=== PATIENT | female | born 1950 | race Caucasian/White ===

== ENCOUNTER 2022-02-13 00:57 | Day surgery (SDC) | payer OTHER, SELFPAY ==
[2022-01-24 14:27] VITALS: BMI 29.5
[2022-02-13 08:25] VITALS: BP 147/86; PULSE 105; RESP 18; TEMP 36.6; O2SAT 100; BMI 29.5
--- NOTE | 2022-02-13 08:46 | P.HP_ITS ---
History of Present Illness History of Present Illness Consent: Risks, benefits, and alternatives have been discussed and questions answered. Patient agrees to proceed with procedure. Chief complaint: neoplasm screening Narrative: Maru Herrera is a 71 year old female Referred for colon cancer screening. Review of Systems Review of Systems: All systems reviewed & are unremarkable except as noted in HPI and below PMFSH Past Medical History Medical History Allergies Anxiety Arthritis Cancer Osteoporosis Surgical History Surgical History History of hysterectomy 1995, Dr. Chen History of lumpectomy 2008, Dr. Ferguson History of tooth extraction 2018, Dr. Lukasz Acosta History of total left hip arthroplasty 1997, Dr. Emerson Key Family History Family History Unknown Family history of cancer fallopian tube Other Alcoholism Breast cancer Cerebrovascular accident Family history of arthritis Family history of heart attack Family history of heart disease Family history of high cholesterol Family history of lung disease Family history of prostate cancer Family history of stroke Hypertension Social History Social History Smoking packs per day: 1 Smoking cigarettes per day: 20.0 Years smoked: 12 Smoking pack-years: 12.00 Smoking status: Former smoker Tobacco type: cigarettes Alcohol intake: current Drinks per week: 6 Substance use: unknown Substance use type: does not use Living arrangements: alone 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[employer] Gender identity (if verbalized by the patient): Female Spiritual care concerns: No Meds Home Medications and Allergies Home Medications Medication Instructions Recorded Confirmed Type venlafaxine 100 mg tablet 100 mg PO DAILY 02/07/22 02/13/22 History Allergies Allergy/AdvReac Type Severity Reaction Status Date / Time codeine Allergy Intermediate Hallucinati Verified 02/13/22 08:34 ng Vital Signs Vital Signs - 24 hr 02/13/22 08:25 Temperature 36.6 C Pulse Rate 105 H Respiratory Rate 18 Blood Pressure 147/86 H Pulse Oximetry 100 Exam Resp: Auscultation: clear to auscultation bilaterally Cardio: Rate: regular rate Rhythm: regular rhythm GI: GI Palp: Yes Soft to palpation and No Tenderness to palpation present (GI) Assessment and Plan Assessment and plan (1) Colon cancer screening: Code(s): Z12.11 - Encounter for screening for malignant neoplasm of colon Status: Acute Assessment and Plan: Colonoscopy with possible biopsy or polypectomy or cautery or injection of substances.
[2022-02-13] MEDS: LACTATED RINGERS 1,000 ML 150 ML IV CONT (08:52)
--- NOTE | 2022-02-13 09:20 | P.PNAN_ITS ---
Anes - Initial Pre Proc Eval Procedure: Operation Date: 02/13/22 09:30 Proposed Procedures p Screening Colonoscopy - Mario Pereira MD Date/Time: 02/13/22 09:20 Surgeon: Mario Pereira MD Pre Op Diagnosis: neoplasm screening Patient Data Age: 71 Gender: F Height: 1.45 m Weight: 61.8 kg Last Vital Signs Temp 97.8 F 02/13/22 08:25 Pulse 105 H 02/13/22 08:25 Resp 18 02/13/22 08:25 BP 147/86 H 02/13/22 08:25 Pulse Ox 100 02/13/22 08:25 Allergies Allergy/AdvReac Type Severity Reaction Status Date / Time codeine Allergy Intermediate Hallucinati Verified 02/13/22 08:34 ng Home Medications Medication Instructions Recorded Confirmed Type venlafaxine 100 mg tablet 100 mg PO DAILY 02/07/22 02/13/22 History Patient hx anesthesia problems: none Family hx anesthesia problems: none Results Review: All pre-operative results and documents have been reviewed as part of the pre- operative evaluation. [facility] Past Medical History Medical History Allergies Anxiety Arthritis Cancer Osteoporosis Surgical History Surgical History History of hysterectomy 1995, Dr. Chen History of lumpectomy 2008, Dr. Ferguson History of tooth extraction 2018, Dr. Lukasz Acosta History of total left hip arthroplasty 1997, Dr. Emerson Key Family History Family History Unknown Family history of cancer fallopian tube Other Alcoholism Breast cancer Cerebrovascular accident Family history of arthritis Family history of heart attack Family history of heart disease Family history of high cholesterol Family history of lung disease Family history of prostate cancer Family history of stroke Hypertension Social History Social History Smoking packs per day: 1 Smoking cigarettes per day: 20.0 Years smoked: 12 Smoking pack-years: 12.00 Smoking status: Former smoker Tobacco type: cigarettes Alcohol intake: current Drinks per week: 6 Substance use: unknown Substance use type: does not use Living arrangements: alone 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 Informed Consent: The patient's anesthetic plan and its attendant risks and benefits were discusse d with the patient/family/POA. Questions were solicited and answers provided to the satisfaction of the patient/family/POA.
[2022-02-13 09:44] VITALS: BP 133/79; PULSE 82; RESP 20; O2SAT 100
[2022-02-13 09:54] VITALS: BP 135/80; PULSE 84; RESP 19; O2SAT 100
[2022-02-13 10:04] VITALS: BP 137/87; PULSE 81; RESP 22; O2SAT 100
== END 2022-02-13 10:12 | disposition home or self-care (01) ==
PROVIDERS: PCP Internal Medicine; Visit Provider Internal Medicine Gastroenterology
PROC: 0DJD8ZZ Inspection of Lower Intestinal Tract, Via Natural or Artificial Opening Endoscopic (ICD-10-PCS; CPT 45378; principal; 2022-02-13 09:30)
DX: Z12.11 Encounter for screening for malignant neoplasm of colon (principal); F41.9 Anxiety disorder, unspecified; Z87.891 Personal history of nicotine dependence; E66.9 Obesity, unspecified; Z68.29 Body mass index [BMI] 29.0-29.9, adult
CPT/HCPCS: G0121; J2704; J7120

== ENCOUNTER → 2022-02-25 13:33 | Outpatient (CLI) | payer OTHER, SELFPAY ==
--- NOTE | ~2022-02-25 | CT_ITS ---
EXAMINATION: CT hip LT wo con DATE: 02/25/2022 13:54 INDICATION: Left hip pain. TECHNIQUE: Computed tomography (CT) of the left hip was performed without intravenous contrast. Autom ated exposure control and iterative reconstruction technique were employed. The dose-length product w as 384.75 mGy-cm. COMPARISON: Left hip radiographs 02/03/2022 FINDINGS: There is a total left hip arthroplasty with asymmetric liner wear. No fracture. There is beba cency adjacent to the acetabular cup superolaterally. There is lucency adjacent to the proximal aspec t of the femoral component. There are 2 screws in the posterior acetabulum. No acute fracture. IMPRESSION: 1. Total left hip arthroplasty with asymmetric liner wear and osteolysis adjacent to the acetabular a nd femoral components, which may be particle disease or infection. Reviewed, dictated and finalized at location B. IMPRESSION: 1. Total left hip arthroplasty with asymmetric liner wear and osteolysis adjace nt to the acetabular and femoral components, which may be particle disease or i nfection.
== END ==
PROVIDERS: PCP Family Medicine; Visit Provider Orthopaedic Surgery
DX: M25.552 Pain in left hip (principal); G89.29 Other chronic pain; Z96.642 Presence of left artificial hip joint
CPT/HCPCS: 73700

== ENCOUNTER → 2022-06-10 07:52 | Outpatient (CLI) | payer OTHER, SELFPAY ==
--- NOTE | ~2022-06-10 | DEXA_ITS ---
Bone Density Report Name: VIVIANE DUENAS Age: 71 Sex: Female Ethnicity: White Date of : 1950 Indication: postmenopausal; screening for osteoporosis; height loss; hysterectomy; Referring Provider: NEELIMA DALLAS Study: Bone densitometry was performed. Exam Date: June 10, 2022 Accession number: [id number] Bone Density: Region BMD T-score Z-score Classification AP Spine (L1-L4) 0.845 -1.8 0.4 Osteopenia Femoral Neck (Right) 0.646 -1.8 0.1 Osteopenia Total Hip (Right) 0.850 -0.8 0.8 Normal World Health Organization criteria for BMD impression classify patients as: Normal (T-score at or above -1.0), Osteopenia (T-score between -1.0 and -2.5), or Osteoporosis (T-score at or below -2.5). 10-year Fracture Risk(1): Major Osteoporotic Fracture 11% Hip Fracture 2.0% Reported Risk Factors: [place] (), Neck BMD=0.646, BMI=30.9 (1) FRAX(R) Version 3.08. Fracture probability calculated for an untreated patient. Fracture probability may be lower if the patient has received treatment. Clinical Information Provided by Patient: Has the following medical conditions: Hysterectomy, HX OF RIGHT BREAST CANCER LUMPECTOMY WITH RADIATION AND CHEMO IN 2005, HX OF TAKING ANASTROZOLE Patient maximum height was 57.0 Menopause Age: 45 No regular weight bearing exercise Drinks caffeinated beverages Onset of menses at age 12 Number of children 0 Impression: The patient has low bone mass, based on the Total Spine T-score. The patient has an estimated ten-year risk of hip fracture of 2% and an estimated ten-year risk of major fracture of 11%, based on the WHO FRAX algorithm. Discussion: BONE DENSITY IS LOW AT ONE OR MORE SKELETAL SITES. This patient's lowest T-score is low at one or more skeletal sites. It meets the World Health Organization's (WHO) criteria for ?low bone mass? (T-score between -1.0 and -2.5). The patient's 10-year risk of fracture as calculated by FRAX is less than the threshold where pharmacological therapy is recommended by the National Osteoporosis Foundation (NOF). However, all treatment decisions require clinical judgment and consideration of individual patient factors, including patient preferences, comorbidities, previous drug use, risk factors not captured in the FRAX model (e.g., frailty, falls, vitamin D deficiency, increased bone turnover, interval significant decline in bone density) and possible under or overestimation of fracture risk by FRAX. The patient should follow a healthful lifestyle (good nutrition with adequate calcium and vitamin D, and appropriate weight-bearing exercise). Follow-Up: Consider repeating this study in 2 to 3 years to reassess this patient's status, or sooner if there is some new clinical indication. Reported by: MEÑO on 06/10/2022 9:19:00 AM.
== END ==
PROVIDERS: PCP Family Medicine; Visit Provider Internal Medicine
DX: M81.0 Age-related osteoporosis without current pathological fracture (principal); M85.88 Other specified disorders of bone density and structure, other site; M85.851 Other specified disorders of bone density and structure, right thigh
CPT/HCPCS: 77080

== ENCOUNTER 2022-09-09 11:52 | Outpatient (CLI) | payer OTHER, SELFPAY ==
--- NOTE | ~2022-09-09 | MM_ITS ---
EXAMINATION: MM diagnostic dimitri BI w geoff HISTORY: Screening. History of breast cancer. TECHNIQUE: ML, MLO and CC 3-D tomosynthesis images of both breasts were performed and synthetic 2-D i mages were generated. CAD analysis was submitted and interpreted. COMPARISON: None BREAST PARENCHYMAL COMPOSITION: There are scattered areas of fibroglandular density. FINDINGS: There is postoperative change including surgical clips, architectural distortion of very de nse calcification in the posterior upper outer right breast. Otherwise no suspicious mass, architectural distortion malignant calcification or skin retraction is noted. IMPRESSION: 1. Status post right partial mastectomy for breast cancer; no mammographic evidence of malignancy 2. Routine annual mammographic screening is recommended BI-RADS Category 2: Benign finding(s). Reviewed, dictated and finalized at location A. [employer] IMPRESSION: 1. Status post right partial mastectomy for breast cancer; no mammographic evid ence of malignancy 2. Routine annual mammographic screening is recommended BI-RADS Category 2: Benign finding(s).
== END 2022-09-09 11:53 | disposition home or self-care (01) ==
PROVIDERS: PCP Family Medicine; Visit Provider Family Medicine
DX: Z85.3 Personal history of malignant neoplasm of breast (principal)
CPT/HCPCS: 77062; 77066; G0279

== ENCOUNTER 2022-10-17 09:38 | Outpatient (CLI) | payer OTHER, SELFPAY ==
[2022-10-17 19:54] LABS: LDL Cholesterol Direct 109 mg/dL
[2022-10-17 20:11] LABS: Alanine Aminotransferase 26 U/L (6-35); Albumin Level 4.4 g/dL (3.5-5.1); Alkaline Phosphatase 69 U/L (38-126); Anion Gap 5 mmol/L (8-16); Aspartate Amino Transferase 38 U/L (14-36); Bilirubin,Total 0.4 mg/dL (0.2-1.3); Blood Urea Nitrogen 26 mg/dL (7-17); Carbon Dioxide 29 mmol/L (22-30); Chloride 101 mmol/L (98-107); Cholesterol 265 mg/dL (0-200); Estimated Glomerular Filt Rate > 60; Glucose 107 mg/dL (65-110); Potassium 4.1 mmol/L (3.4-5.0); Sodium 135 mmol/L (137-145); Triglycerides 80 mg/dL (<150)
[2022-10-17 20:20] LABS: HDL Direct 124 mg/dL
== END 2022-10-17 09:39 | disposition home or self-care (01) ==
LOC: ANHGOSHLAB 09:39
PROVIDERS: PCP Family Medicine; Visit Provider Family Medicine
DX: E78.00 Pure hypercholesterolemia, unspecified (principal); Z13.228 Encounter for screening for other metabolic disorders
CPT/HCPCS: 36415; 80053; 80061

== ENCOUNTER 2023-10-19 10:41 | Outpatient (CLI) | payer OTHER, SELFPAY ==
[2023-10-19 13:45] LABS: Basophils Absolute Auto 0.1 K/mm3 (0.0-0.1); Eosinophils Absolute Auto 0.3 K/mm3 (0-0.3); Eosinophils Percent Auto 4.7 % (0-4.4); Hematocrit 37.4 % (37.0-47.0); Hemoglobin 11.8 g/dL (12.0-15.0); Immature Granulocyte Absolute 0.01 K/mm3 (0.00-0.031); Immature Granulocyte Percent A 0.2 % (0-0.5); Lymphocytes Absolute Auto 1.95 K/mm3 (0.9-3.2); Lymphocytes Percent Auto 33.6 % (18.3-44.2); Mean Corpuscular HGB Conc 31.6 g/dl (32-36); Mean Corpuscular Hemoglobin 33.4 pg (26-34); Mean Corpuscular Volume 105.9 fl (80-100); Mean Platelet Volume 11.3 fl (7.4-10.4); Monocytes Absolute Auto 0.7 K/mm3 (0.1-0.6); Monocytes Percent Auto 11.4 % (2.6-8.5); Neutrophils Absolute Auto 2.9 K/mm3 (1.3-6.7); Neutrophils Percent Auto 49.1 % (45.5-73.1); Platelet Count Result 341 k/mm3 (150-375); Red Blood Count 3.53 M/mm3 (4.2-5.4); Red Cell Distribution Width 13.8 % (11.5-14.5); White Blood Count 5.8 K/mm3 (4.5-10.0)
[2023-10-19 14:02] LABS: LDL Cholesterol Direct 110 mg/dL
[2023-10-19 14:15] LABS: Hypochromasia 1+ (NORMAL); Platelet Estimate Adequate (Adequate); Schistocytes None Seen (NORMAL)
[2023-10-19 14:46] LABS: HDL Direct 117 mg/dL
[2023-10-19 14:47] LABS: Alanine Aminotransferase 19 U/L (6-35); Albumin Level 4.5 g/dL (3.5-5.1); Alkaline Phosphatase 70 U/L (38-126); Anion Gap 7 mmol/L (8-16); Aspartate Amino Transferase 38 U/L (14-36); Bilirubin,Total 0.5 mg/dL (0.2-1.3); Blood Urea Nitrogen 19 mg/dL (7-17); Calcium 9.4 mg/dL (8.4-10.2); Carbon Dioxide 29 mmol/L (22-30); Chloride 102 mmol/L (98-107); Cholesterol 250 mg/dL (0-200); Estimated Glomerular Filt Rate > 60; Glucose 105 mg/dL (65-110); Potassium 4.4 mmol/L (3.4-5.0); Sodium 138 mmol/L (137-145); Triglycerides 76 mg/dL (<150)
[2023-10-19 16:06] LABS: Hemoglobin A1C 5.2 % (<5.7)
== END 2023-10-19 10:42 | disposition home or self-care (01) ==
LOC: ANHGOSHLAB 10:42
PROVIDERS: PCP Family Medicine; Visit Provider Family Medicine
DX: R53.83 Other fatigue (principal); Z13.228 Encounter for screening for other metabolic disorders; E78.00 Pure hypercholesterolemia, unspecified; Z13.220 Encounter for screening for lipoid disorders; R73.9 Hyperglycemia, unspecified
CPT/HCPCS: 36415; 80053; 80061; 83036; 84443; 85025

== ENCOUNTER 2024-03-18 13:10 | Outpatient (CLI) | payer OTHER, SELFPAY ==
--- NOTE | ~2024-03-18 | MM_ITS ---
EXAMINATION: MM screening dimitri BI w geoff HISTORY: Screening mammogram, family history of breast cancer in her mother. TECHNIQUE: Craniocaudal and mediolateral oblique 3-D tomosynthesis images were obtained and synthetic 2-D images were generated. CAD analysis was submitted and interpreted. COMPARISON: 09/09/2022 BREAST PARENCHYMAL COMPOSITION:Not Dense. There are scattered areas of fibroglandular density. FINDINGS: Stable post lumpectomy change of the upper, outer right breast. No suspicious mass, calcifi cation, or architectural distortion are identified in either breast to suggest malignancy. There has been no suspicious interval change. IMPRESSION: No mammographic evidence of malignancy. Recommend routine screening mammography in one year. BI-RADS Category 2: Benign finding(s). Reviewed, dictated and finalized at location .
== END 2024-03-18 13:11 | disposition home or self-care (01) ==
LOC: ANHIMG 13:12
PROVIDERS: PCP Family Medicine; Visit Provider Family Medicine
DX: Z12.31 Encounter for screening mammogram for malignant neoplasm of breast (principal)
CPT/HCPCS: 77063; 77067

== ENCOUNTER 2024-04-25 10:18 | Outpatient (CLI) | payer OTHER, SELFPAY ==
--- NOTE | ~2024-04-25 | XR_ITS ---
XR chest 2V Ordering provider: Santino Wu DO History: 73 years Female with . wheezing , cough . Hx of right side breast ca 18 years ago . Comparison: None. FINDINGS: MEDIASTINUM: The cardiac silhouette is not enlarged. LUNGS: No infiltrates, effusions or pneumothorax. OTHER: No free air under the diaphragm. Degenerative the spine. IMPRESSION: No acute cardiopulmonary pathology. Reviewed, dictated and finalized at location A.
== END 2024-04-25 10:19 ==
PROVIDERS: PCP Family Medicine; Visit Provider Family Medicine
DX: R05.9 Cough, unspecified (principal); R06.2 Wheezing; Z85.3 Personal history of malignant neoplasm of breast
CPT/HCPCS: 71046

== ENCOUNTER 2024-08-31 07:54 | Outpatient (CLI) | payer OTHER, SELFPAY ==
--- NOTE | ~2024-08-31 | DEXA_ITS ---
Bone Density Report Name: VIVIANE DUENAS Age: 73 Sex: Female Ethnicity: White Date of : 1950 Indication: postmenopausal; screening for osteoporosis; height loss; hysterectomy; Referring Provider: EDMOND JERNIGAN Study: Bone densitometry was performed. Exam Date: August 31, 2024 Accession number: [id number] Bone Density: Region BMD T-score Z-score Classification AP Spine(L1-L4) 0.805 -2.2 0.1 Osteopenia Femoral Neck (Right) 0.544 -2.8 -0.7 Osteoporosis Total Hip (Right) 0.826 -1.0 0.8 Normal World Health Organization criteria for BMD impression classify patients as: Normal (T-score at or above -1.0), Osteopenia (T-score between -1.0 and -2.5), or Osteoporosis (T-score at or below -2.5). 10-year Fracture Risk: FRAX not reported because: Some T-score for Spine Total or Hip Total or Femoral Neck at or below -2.5 Clinical Information Provided by Patient: Has the following medical conditions: Hysterectomy, hx breast ca Patient maximum height was 57.0 No regular weight bearing exercise Drinks caffeinated beverages Onset of menses at age 12 Number of children 0 Impression: The patient has osteoporosis, based on the Right Femoral Neck T-score. Discussion: INCREASED RISK OF FRACTURE. BONE DENSITY IS UNDESIRABLY LOW AT ONE OR MORE SKELETAL SITES, CONSISTENT WITH POSTMENOPAUSAL OSTEOPOROSIS. This patient's lowest T-score meets the World Health Organization's (WHO) criteria for osteoporosis at one or more sites (T-score -2.5 or below). In untreated patients, the risk of osteoporotic fracture increases approximately two-fold for each 1.0 SD decrease in T-score. Low bone density is not the only risk factor for fracture; also consider factors such as patient's age, frailty or poor health, risk of falling, risk of injury, previous osteoporotic fracture, family history of osteoporosis, cigarette smoking, low body weight, etc. Not everyone with low bone mineral density has osteoporosis; osteomalacia and other metabolic bone disorders should also be considered. Patients who have osteoporosis should be evaluated for specific diseases and conditions (secondary causes) that may cause or contribute to bone loss. The [place] [employer] Endocrinologists (AACE) and National Osteoporosis Foundation (NOF) recommend pharmacologic intervention for all postmenopausal women whose T-score is in this range. The patient should follow a healthful lifestyle (good nutrition with adequate calcium and vitamin D, and appropriate weight-bearing exercise). Follow-Up: Consider a repeat BMD and Vertebral Fracture Assessment (VFA) exam in 2 years or sooner if medically necessary, to reassess this patient's status. Reported by: JENNIFER on 08/31/2024 8:26:00 AM. Reviewed, dictated and finalized at location ANic FERREIRA
== END 2024-08-31 07:55 | disposition home or self-care (01) ==
LOC: ANHIMG 07:57
PROVIDERS: PCP Family Medicine; Visit Provider Family Medicine
DX: M81.0 Age-related osteoporosis without current pathological fracture (principal); M85.89 Other specified disorders of bone density and structure, multiple sites; Z13.820 Encounter for screening for osteoporosis
CPT/HCPCS: 77080